=== PATIENT | female | born 2005 | race Caucasian/White ===

== ENCOUNTER 2024-05-04 14:28 | Emergency (ER) | payer BC ==
[~2024-05-04] VITALS: Ht 162.6 cm; Wt 93.2 kg
[2024-05-04 14:44] VITALS: BP 129/86; TEMP 97.8
[2024-05-04 19:28] VITALS: PULSE 70
== END 2024-05-04 19:28 | disposition home or self-care (01) ==
LOC: COL.ER 14:28
DX: S60.051A Contusion of right little finger without damage to nail, initial encounter (principal); F17.210 Nicotine dependence, cigarettes, uncomplicated; F17.290 Nicotine dependence, other tobacco product, uncomplicated; W22.09XA Striking against other stationary object, initial encounter